=== PATIENT | male | born 1960 | race Caucasian/White ===

== ENCOUNTER 2016-09-19 19:31 | Emergency (ER) | payer BC ==
[2016-09-19 19:55] VITALS: BP 151/95
[2016-09-19] MEDS ORDERED: Lidocaine 1% 20 ML MDV INJECT ONE (19:57)
[2016-09-19] MEDS ORDERED: Lidocaine 1% 10 ML MDV ONE (20:04)
[2016-09-19] MEDS ORDERED: Lidocaine 1% 10 ML MDV INJECT ONE (20:12)
--- NOTE | 2016-09-19 20:15 | EDM.PDOC ---
ED HPI GENERAL MEDICAL PROBLEM - General Chief Complaint: Laceration Stated Complaint: CUT ON TOP OF HEAD Time Seen by Provider: 09/19/16 19:47 Source of Information: Reports: Patient History Limitations: Reports: No Limitations - History of Present Illness INITIAL COMMENTS - FREE TEXT/NARRATIVE: This is a 56-year-old male. He accidentally walked into the hitch of his fifth wheel and caused a laceration to his scalp. He states he is up-to- date with his tetanus. He denies any loss of consciousness denies any headache. He comes to the ER to get his laceration repaired. He denies any other acute injury. - Related Data Allergies Allergy/AdvReac Type Severity Reaction Status Date / Time amoxicillin Allergy Cannot Verified 09/19/16 19:46 Remember Penicillins Allergy Cannot Verified 09/19/16 19:46 Remember Home Meds: Home Meds Lisinopril 40 mg PO DAILY 09/19/16 [History] Simvastatin [Zocor] 20 mg PO DAILY 09/19/16 [History] Past Medical History Cardiovascular History: Reports: High Cholesterol, Hypertension - Past Surgical History Musculoskeletal Surgical History: Reports: Other (See Below) Other Musculoskeletal Surgeries/Procedures:: blood clot to head at age 6 and had it removed Social & Family History - Tobacco Use Smoking Status *Q: Current Every Day Smoker Years of Tobacco use: 1 Packs/Tins Daily: 0.1 - Caffeine Use Caffeine Use: Reports: Coffee - Recreational Drug Use Recreational Drug Use: No ED ROS GENERAL - Review of Systems Review Of Systems: See Below Constitutional: Denies: Fever, Chills HEENT: Reports: Other (As per history of present illness) Respiratory: Reports: No Symptoms Cardiovascular: Reports: No Symptoms Endocrine: Reports: No Symptoms GI/Abdominal: Reports: No Symptoms Musculoskeletal: Reports: No Symptoms Skin: Reports: Other (As per history of present illness) Neurological: Reports: No Symptoms Psychiatric: Reports: No Symptoms ED EXAM, SKIN/RASH Exam: See Below Exam Limited By: No Limitations General Appearance: Alert, WD/WN, No Apparent Distress Eye Exam: Bilateral Eye: Normal Inspection Ears: Normal External Exam Nose: Normal Inspection Throat/Mouth: Normal Lips, Normal Voice Head: Other (On the top of his head slightly to the left side in the parietal region he has a crescent shaped laceration about 4.5 cm total length, the wound is fairly well approximated, bleeding is controlled at this time) Neck: Normal Inspection, Supple Respiratory/Chest: No Respiratory Distress Back Exam: Normal Inspection, Full Range of Motion Extremities: Normal Inspection, Normal Range of Motion Neurological: Alert, Oriented Psychiatric: Normal Affect, Normal Mood Skin: Warm, Dry ED SKIN PROCEDURES - Laceration/Wound Repair Left Head Lac/Wound length In cm: 4.5 Appearance: Subcutaneous, Other ([place] shaped linear) Distal NVT: Neuro & Vascular Intact Anesthetic Type: Local Local Anesthesia - Lidocaine (Xylocaine): 1% Plain Local Anesthetic Volume: Other (6 mL) Skin Prep: Saline Exploration/Debridement/Repair: Wound Explored, Explored to Base Closed with: Stanley # of Sutures: 4 Drain Placement: No Sterile Dressing Applied: Nurse Tetanus Status Addressed: Yes Complications: No Progress/Comments: Patient tolerated the procedure without any difficulty. The wound was well approximated with good hemostasis. Course - Vital Signs Last Recorded V/S: Last Vital Signs Temp 98.5 F 09/19/16 19:53 Pulse 91 09/19/16 19:53 Resp 20 09/19/16 19:53 BP 151/95 H 09/19/16 19:53 Pulse Ox 99 09/19/16 19:53 - Orders/Labs/Meds Meds: Medications Discontinued Medications Generic Name Dose Route Start Last Admin Trade Name Tc PRN Reason Stop Dose Admin Lidocaine HCl 30 ml 09/19/16 19:57 Xylocaine 1% INJECT 09/19/16 19:58 ONETIME ONE Lidocaine HCl Confirm 09/19/16 20:04 Xylocaine 1% Administered 09/19/16 20:05 Dose 10 ml .ROUTE .STK-MED ONE Departure - Departure Time of Disposition: 20:13 Disposition: Home, Self-Care 01 Condition: Good Clinical Impression: Laceration of scalp Qualifiers: Encounter type: initial encounter Qualified Code(s): S01.01XA - Laceration without foreign body of scalp, initial encounter - Discharge Information Referrals: Dima Wise PA-C [Primary Care Provider] - Forms: ED Department Discharge Additional Instructions: Keep the area clean and dry and covered for the next 3-4 days, watch for any signs of infection such as purulent drainage and or increased redness or swelling, you may take a shower but just be very gentle about rubbing that area with the stanley, follow-up with your family doctor in 7 days for staple removal , return to the ER if there are any problems
== END 2016-09-19 20:20 | disposition home or self-care (01) ==
LOC: JD.ED 19:31
DX: S01.01XA Laceration without foreign body of scalp, initial encounter (principal); Z88.1 Allergy status to other antibiotic agents; Z88.0 Allergy status to penicillin; F17.210 Nicotine dependence, cigarettes, uncomplicated; W26.8XXA Contact with other sharp object(s), not elsewhere classified, initial encounter
CPT/HCPCS: 12002; 99283-25

== ENCOUNTER 2019-06-19 16:26 | Emergency (ER) | payer BC ==
[2019-06-19] MEDS ORDERED: Sodium Chloride 0.9% 10 ML Syringe FLUSH PRN (16:51)
--- NOTE | 2019-06-19 17:36 | EDM.PDOC ---
ED HPI GENERAL MEDICAL PROBLEM - General Chief Complaint: Neuro Symptoms/Deficits Stated Complaint: LT SIDE NUMBNESS Time Seen by Provider: 06/19/19 16:35 Source of Information: Reports: Patient, RN Notes Reviewed - History of Present Illness INITIAL COMMENTS - FREE TEXT/NARRATIVE: 59 yr old male that had onset of numbness L face, arm and leg about 4 to 5 hrs [employer]. He still has numbness of the L hand and arm. No speech difficulty. No focal weakness. No facial droop. Hx Htn, type 2 diabetes, does not smoke. Last known well 4 to 5 hrs ago. No chest pain or difficulty breathing. No Lyles, visual difficulty, vertigo or difficulty ambulating. - Related Data Allergies Allergy/AdvReac Type Severity Reaction Status Date / Time amoxicillin Allergy Cannot Verified 06/19/19 16:35 Remember Penicillins Allergy Cannot Verified 06/19/19 16:35 Remember Home Meds: Home Meds Lisinopril 40 mg PO DAILY 09/19/16 [History] Simvastatin [Zocor] 20 mg PO DAILY 09/19/16 [History] Jardiance. 1 tab PO DAILY 06/19/19 [History] Metoprolol Succinate 1 tab PO BID 06/19/19 [History] Potassium Chloride 20 meq PO DAILY 06/19/19 [History] metFORMIN HCl [Metformin HCl] 500 mg PO BID 06/19/19 [History] Past Medical History Cardiovascular History: Reports: High Cholesterol, Hypertension Endocrine/Metabolic History: Reports: Diabetes, Type II - Past Surgical History Musculoskeletal Surgical History: Reports: Other (See Below) Other Musculoskeletal Surgeries/Procedures:: blood clot to head at age 6 and had it removed Social & Family History - Tobacco Use Smoking Status *Q: Never Smoker Second Hand Smoke Exposure: No - Caffeine Use Caffeine Use: Reports: Coffee - Recreational Drug Use Recreational Drug Use: No ED ROS GENERAL - Review of Systems Review Of Systems: See Below Constitutional: Denies: Fever, Chills, Diaphoresis HEENT: Denies: Dental Pain, Throat Pain, Vertigo, Vision Change Respiratory: Denies: Shortness of Breath Cardiovascular: Denies: Chest Pain GI/Abdominal: Denies: Abdominal Pain, Nausea, Vomiting Musculoskeletal: Denies: Neck Pain, Shoulder Pain, Arm Pain, Back Pain, Leg Pain Skin: Reports: No Symptoms Neurological: Reports: Numbness. Denies: Dizziness, Headache, Trouble Speaking , Difficulty Walking, Weakness ED EXAM, NEURO - Physical Exam Exam: See Below General Appearance: Alert, No Apparent Distress Eye Exam: Bilateral Eye: PERRL Throat/Mouth: Normal Inspection, Normal Oropharynx Head Exam: Atraumatic Neck: Supple Respiratory/Chest: No Respiratory Distress, Lungs Clear, Normal Breath Sounds Cardiovascular: Tachycardia GI/Abdominal: Soft, Non-Tender Neurological: Alert, No Motor/Sensory Deficits, Oriented x 3, Other (Finger to nose nl) Back Exam: Normal Inspection Extremities: Normal Inspection, Normal Range of Motion Skin Exam: Warm, Dry, Normal Color EKG INTERPRETATION EKG Date: 06/19/19 Rhythm: NSR [place]: Normal P-Wave: Present QRS: Other (q waves lead III) ST-T: Other (no significant st changes) Course - Vital Signs Last Recorded V/S: Last Vital Signs Temp 99.3 F 06/19/19 16:32 Pulse 91 06/19/19 19:05 Resp 22 H 06/19/19 17:36 BP 150/96 H 06/19/19 19:05 Pulse Ox 97 06/19/19 19:05 - Orders/Labs/Meds Orders: Active Orders 24 hr Category Date Time Status EKG 12 Lead [EKG Documentation Completion] [RC] STAT Care 06/19/19 16:52 Active Peripheral IV Care [RC] . DIRECTED Care 06/19/19 16:53 Active Peripheral IV Insertion Adult [OM.PC] Stat Oth 06/19/19 16:52 Ordered Labs: Laboratory Tests 06/19/19 06/19/19 06/19/19 Range/Units 16:33 16:35 16:35 WBC 8.93 (4.23-9.07) K/mm3 RBC 5.81 (4.63-6.08) M/mm3 Hgb 17.0 (13.7-17.5) gm/dl Hct 49.3 (40.1-51.0) % MCV 84.9 (79.0-92.2) fl MCH 29.3 (25.7-32.2) pg MCHC 34.5 (32.2-35.5) g/dl RDW Std Deviation 44.2 H (35.1-43.9) fL Plt Count 301 (163-337) K/mm3 MPV 11.0 (9.4-12.3) fl Neut % (Auto) 63.5 (34.0-67.9) % Lymph % (Auto) 25.4 (21.8-53.1) % [place] % (Auto) 9.2 (5.3-12.2) % Eos % (Auto) 1.5 (0.8-7.0) Baso % (Auto) 0.2 (0.1-1.2) % Neut # (Auto) 5.67 H (1.78-5.38) K/mm3 Lymph # (Auto) 2.27 (1.32-3.57) K/mm3 [place] # (Auto) 0.82 (0.30-0.82) K/mm3 Eos # (Auto) 0.13 (0.04-0.54) K/mm3 Baso # (Auto) 0.02 (0.01-0.08) K/mm3 Sodium 140 (136-145) mEq/L Potassium 3.4 L (3.5-5.1) mEq/L Chloride 101 (98-107) mEq/L Carbon Dioxide 22 (21-32) mEq/L Anion Gap 20.4 H (5-15) BUN 14 (7-18) mg/dL Creatinine 1.0 (0.7-1.3) mg/dL Est Cr Clr Drug Dosing 83.67 mL/min Estimated GFR (MDRD) > 60 (>60) mL/min BUN/Creatinine Ratio 14.0 (14-18) Glucose 201 H (74-106) mg/dL POC Glucose 184 H (70-105) mg/dL Calcium 9.1 (8.5-10.1) mg/dL Total Bilirubin 0.6 (0.2-1.0) mg/dL AST 20 (15-37) U/L ALT 38 (16-63) U/L Alkaline Phosphatase 65 (46-116) U/L Total Protein 7.6 (6.4-8.2) g/dl Albumin 3.8 (3.4-5.0) g/dl Globulin 3.8 gm/dL Albumin/Globulin Ratio 1.0 (1-2) Meds: Medications Discontinued Medications Generic Name Dose Route Start Last Admin Trade Name Freq PRN Reason Stop Dose Admin Aspirin 324 mg 06/19/19 18:54 06/19/19 19:06 Aspirin PO 06/19/19 18:55 324 mg ONETIME ONE Administration Sodium Chloride 10 ml 06/19/19 16:51 06/19/19 17:02 Saline Flush FLUSH 10 ml ASDIRECTED PRN Administration Keep Vein Open - Re-Assessments/Exams Free Text/Narrative Re-Assessment/Exam: 06/19/19 19:[address] was nl, labs OK, mildly dehydrated. BP initially quite elevated, that did come down with time to more reasonable levels without medical intervention. Sinus rythm, no ectopy. He continued to have any further sx while here in the ED. I have written order for MRI brain, MRA neck and brain that can hopefully be done tomorrow. Radiology will contact patient in AM. We have given ASA 324 mg PO. Discharge instr. as documented. Departure - Departure Time of Disposition: 18:49 Disposition: Home, Self-Care 01 Condition: Fair Clinical Impression: Paresthesias in left hand, Arm paresthesia, left Hypertension Qualifiers: Hypertension type: essential hypertension Qualified Code(s): I10 - Essential ( primary) hypertension - Discharge Information Instructions: Hypertension, Adult, [id number], Paresthesia, [id number] Referrals: Dima Wise PA-C [Primary Care Provider] - Forms: ED Department Discharge Additional Instructions: Continue current medications, drink plenty of water to maintain hydration. MRI Brain, MRA Neck, MRA brain. Order has been provided for Radiology. They will call you tomorrow AM for a time to come in and get that done. You have been given aspirin 324 mg while here in the ED. For now start taking 81 mg baby aspirin daily. See Dima Wise this week as planned. If I do see your results come across this week I will call you with results. You can call ED for results if you have not been notified or have not seen Dima within 48 hours of having had the MRI. Call [phone] for results as needed. Return to ED as needed if symptoms worsening in any way. Sepsis Event Note - Evaluation Sepsis Screening Result: No Definite Risk - Focused Exam Vital Signs: Vital Signs Temp Pulse Pulse Resp BP BP Pulse Ox 06/19/19 19:05 91 150/96 H 97 06/19/19 17:36 94 22 H 96 06/19/19 17:20 95 95 06/19/19 17:18 97 16 158/94 H 95 06/19/19 17:16 95 158/94 H 91 L 06/19/19 17:15 91 95 06/19/19 17:10 95 94 L 06/19/19 17:05 94 22 H 95 06/19/19 17:01 95 22 H 160/95 H 96 06/19/19 17:00 95 14 97 06/19/19 16:55 94 19 95 06/19/19 16:50 93 16 94 L 06/19/19 16:46 98 17 179/107 H 93 L 06/19/19 16:45 98 16 96 06/19/19 16:40 105 H 25 H 95 06/19/19 16:32 99.3 F 111 H 16 204/117 H 96 Date Exam was Performed: 06/19/19 Time Exam was Performed: 19:21 - My Orders Last 24 Hours: My Active Orders 06/19/19 16:52 EKG 12 Lead [EKG Documentation Completion] [RC] STAT Peripheral IV Insertion Adult [OM.PC] Stat 06/19/19 16:53 Peripheral IV Care [RC] . DIRECTED - Assessment/Plan Last 24 Hours: My Active Orders 06/19/19 16:52 EKG 12 Lead [EKG Documentation Completion] [RC] STAT Peripheral IV Insertion Adult [OM.PC] Stat 06/19/19 16:53 Peripheral IV Care [RC] . DIRECTED
--- NOTE | 2019-06-19 18:00 | CT ---
Head CT Technique: Multiple axial sections through the brain were obtained. Intravenous contrast was not utilized. Comparison: No prior intracranial imaging is available. Findings: CSF structure seen within the anterior temporal fossa compatible with arachnoid cyst. Ventricles along with basal cisterns and sulci over the convexities are mildly prominent. No abnormal parenchymal densities are seen. No evidence of intracranial hemorrhage. No midline shift or mass-effect is seen. Bone window settings were reviewed which shows retention cyst within both maxillary sinuses as well as ethmoid sinuses which are most likely chronic. No acute paranasal sinus findings seen within the visualized sinuses. Mastoid sinuses shows minimal mucosal thickening inferiorly within the right mastoid sinus which is most likely incidental. No acute calvarial finding is seen. Impression: 1. Sinus findings most likely chronic. 2. Arachnoid cyst which is felt to be benign and developmental. 3. No acute intracranial abnormality is appreciated. Note: If patient's symptoms persist, recommend MRI to further evaluate. Diagnostic code #2 This report was dictated in MDT I agree with preliminary report from [facility], finalized on 06/19/19, 6:45 PM Central Time
[2019-06-19] MEDS ORDERED: Aspirin 81 MG Tab.Chew PO ONE (18:54)
[2019-06-19 19:13] VITALS: BP 150/96; PULSE 91
== END 2019-06-19 19:05 | disposition home or self-care (01) ==
LOC: JD.ED 16:26
DX: R20.2 Paresthesia of skin (principal); I10 Essential (primary) hypertension; Z88.1 Allergy status to other antibiotic agents; Z88.0 Allergy status to penicillin; E78.00 Pure hypercholesterolemia, unspecified; E11.9 Type 2 diabetes mellitus without complications; Z79.84 Long term (current) use of oral hypoglycemic drugs; Z79.899 Other long term (current) drug therapy
CPT/HCPCS: 36415; 70450; 80053; 82962; 85025; 93005; 99284; A9270; 93010; 99283